=== PATIENT | male | born 1960 | race Caucasian/White ===

== ENCOUNTER → 2018-02-13 | Outpatient (CLI) | payer BC ==
[2018-02-13 08:11] LABS: BASOPHILS % (AUTO) 0 % (0-10); EOSINOPHILS # (AUTO) 0.2 10^3/uL (0.0-0.3); EOSINOPHILS % (AUTO) 3 % (0-10); HEMATOCRIT 43 % (40-54); HEMOGLOBIN 15.5 G/DL (13.3-17.7); LYMPHOCYTES # (AUTO) 0.6 X 10^3 (1.0-4.0); LYMPHOCYTES % (AUTO) 11 % (12-44); MEAN CORPUSCULAR HEMOGLOBIN 31 PG (25-34); MEAN CORPUSCULAR HGB CONC 36 G/DL (32-36); MEAN CORPUSCULAR VOLUME 87 FL (80-99); MEAN PLATELET VOLUME 9.8 FL (7.4-10.4); MONOCYTES # (AUTO) 0.4 X 10^3 (0.0-1.0); MONOCYTES % (AUTO) 7 % (0-12); NEUTROPHILS # (AUTO) 4.4 X 10^3 (1.8-7.8); NEUTROPHILS % (AUTO) 78 % (42-75); PLATELET COUNT 279 10^3/uL (130-400); RED BLOOD COUNT 4.97 10^6/uL (4.35-5.85); RED CELL DISTRIBUTION WIDTH 13.2 % (10.0-14.5); WHITE BLOOD COUNT 5.6 10^3/uL (4.3-11.0)
[2018-02-13 08:30] LABS: ALANINE AMINOTRANSFERASE 31 U/L (0-55); ALBUMIN 4.4 GM/DL (3.2-4.5); ALKALINE PHOSPHATASE 63 U/L (40-136); BILIRUBIN,TOTAL 0.9 MG/DL (0.1-1.0); BUN/CREATININE RATIO 12; CALCIUM 9.2 MG/DL (8.5-10.1); CARBON DIOXIDE 27 MMOL/L (21-32); CHLORIDE 104 MMOL/L (98-107); CHOLESTEROL 190 MG/DL (< 200); CREATININE SERUM 1.02 MG/DL (0.60-1.30); GFR ESTIMATED > 60; GLUCOSE 93 MG/DL (70-105); HDL CHOLESTEROL 52 MG/DL (40-60); POTASSIUM 4.2 MMOL/L (3.6-5.0); SODIUM 139 MMOL/L (135-145); TRIGLYCERIDES 77 MG/DL (<150); VLDL CHOLESTEROL 15 MG/DL (5-40)
== END ==
LOC: CARD 07:44
PROVIDERS: ATTEND Nurse Practitioner Family
DX: R07.9 Chest pain, unspecified (principal); R03.0 Elevated blood-pressure reading, without diagnosis of hypertension; L98.9 Disorder of the skin and subcutaneous tissue, unspecified; Z85.46 Personal history of malignant neoplasm of prostate
CPT/HCPCS: 36415; 80053; 80061; 84153; 84443; 85025; 93005

== ENCOUNTER 2018-02-24 08:00 | Day surgery (SDC) | payer BC ==
[~2018-02-24] VITALS: Ht 182.9 cm; Wt 86.2 kg
[2018-02-24] MEDS ORDERED: NS IV 500 ML 500 ML ONE (08:07)
[2018-02-24] MEDS ORDERED: NS IV 500 ML 500 ML IV PRN (08:09)
[2018-02-24 08:19] VITALS: BP 142/98
[2018-02-24] MEDS ORDERED: MIDAZOLAM 2 MG/2 ML (VERSED) VIAL ONE ×3 (08:49)
[2018-02-24] MEDS ORDERED: fentaNYL INJECTION 100 MCG/2 ML AMP ONE ×2 (08:49→09:22)
[2018-02-24] MEDS: fentaNYL INJECTION 100 MCG/2 ML AMP IVP PRN ×4 (09:05→09:30)
[2018-02-24] MEDS: MIDAZOLAM 2 MG/2 ML (VERSED) VIAL IVP PRN ×3 (09:10→09:27)
--- NOTE | 2018-02-24 09:14 | Conscious Sedation/ASA ---
Conscious Sedation Pre-Proced Time Reviewed: 09:14 ASA Class: 2 Airway Mallampati Classification: (nome appropriate class) I. II. III, IV Lungs Heart ASA score ASA 1: a normal healthy patient ASA 2: a patient with a mild systemic disease (mid diabetes, controlled hypertension, obesity ASA 3: a patient with a severe systemic disease that limits activity (angina , COPD, prior Myocardial infarction) ASA 4: a patient with an incapacitating disease that is a constant threat to life (CHF, renal failure) ASA 5: a moribund patient not expected to survive 24 hrs. (ruptured aneurysm) ASA 6: a declared brain patient whose organs are being harvested. For emergent operations, add the letter E after the classification Grade 1 Sedation Plan: Discussed options with patient/fam Note The patient is an appropriate candidate to undergo the planned procedure, sedation, and anesthesia. The patient immediately re-assessed prior to indication. EDUARDO MALONEY MD February 24, 2018 9:14 am
--- NOTE | 2018-02-24 09:14 | History & Physicial ---
History of Present Illness History of Present Illness Reason for visit/HPI to undergo surveillance colonoscopy. He has a personal history of polyps, based on colonoscopy from 5 years ago. Date of Admission 02/24/18 Date Seen by Provider: February 24, 2018 Time Seen by Provider: 09:12 I consulted on this patient on 02/24/18 09:12 Attending Physician Eduardo Maloney MD Admitting Physician No,Local Physician Consult Allergies and Home Medications Allergies Coded Allergies: No Known Drug Allergies (Unverified , 02/19/18) Home Medications No Active Prescriptions or Reported Meds Patient Home Medication List Home Medication List Reviewed: Yes Past Kcvkrut-Omiabn-Jlxcff Hx Patient Social History Marrital Status: Employed/Student: self-employed Alcohol Use: Occasionally Uses Recreational Drug Use: No Smoking Status: Never a Smoker Recent Foreign Travel: No Contact w/other who traveled: No Recent Hopitalizations: No Recent Infectious Disease Expo: No Seasonal Allergies Seasonal Allergies: Yes Respiratory No Cardiovascular No Neurological No Reproductive System Hx Reproductive Disorders: No Gastrointestinal Yes Polyps Musculoskeletal No Cancer No Constitutional: no symptoms reported EENTM: no symptoms reported Respiratory: no symptoms reported Cardiovascular: no symptoms reported Genitourinary: no symptoms reported Musculoskeletal: no symptoms reported Skin: no symptoms reported Psychiatric/Neurological: No Symptoms Reported Physical Exam Vital Signs Vital Signs - First Documented 02/24/18 08:19 Temp 98.6 Pulse 64 Resp 16 B/P (MAP) 142/98 (113) Pulse Ox 97 O2 Delivery Room Air Capillary Refill : General Appearance: No Apparent Distress Neck: Normal Inspection Respiratory: Lungs Clear Cardiovascular: Regular Rate, Rhythm Gastrointestinal: Non Tender, Soft Rectal: Deferred Neurologic/Psychiatric: Alert, Oriented x3 Skin: Warm/Dry Assessment/Plan Assessment and Plan gentleman with a previous history of polyps. For surveillance colonoscopy Admission Diagnosis Admission Status: Other (Outpt Proc) EDUARDO MALONEY MD February 24, 2018 9:14 am
--- NOTE | 2018-02-24 09:49 | Discharge Inst-Simple/Standard ---
Discharge Inst-Standard Discharge Medications New, Converted or Re-Newed RX: Other Patient Instructions/Follow Up Plan of Care/Instructions/FU: Repeat colonoscopy in 5 years Activity as Tolerated: Yes Discharge Diet: No Restrictions EDUARDO MALONEY MD February 24, 2018 9:49 am
--- NOTE | 2018-02-24 09:49 | Endo Procedure Record ---
Endo Procedure Report Date of Procedure Last Colonoscopy: Yes (2012) February 24, 2018 Surgeon (s) EDUARDO MALONEY MD Post Procedure/Op Diagnosis External hemorrhoid Sigmoid diverticulosis Procedure Performed Colonoscopy to cecum Description of Procedure Anesthesia Type: Conscious Sedation Specimen(s) collected/removed none Description of the Procedure Indication for the procedure: This gentleman came in for surveillance colonoscopy. He reported a personal history of polyps in the past. informed consent was obtained after reviewing the procedure in detail. Description of the procedure: He was placed in left lateral rectus position and his vital signs were monitored. Conscious sedation was achieved using Versed and fentanyl. Examination of the perianal area revealed an external hemorrhoid at about 7 o' clock position. Digital examination was unremarkable. The colonoscope was then introduced in the rectum and advanced all the way up to the cecum. The quality of bowel preparation was rather sub-optimal. I was able to section the liquid fecal material and complete the examination. The scope was then withdrawn slowly and the mucosa examined in a systematic fashion. Findings: Sigmoid diverticulosis. No recurrent polyps were found. He tolerated the procedure well and was taken back to the nursing area in a stable condition. Impression: Polyp surveillance. No recurrence. Recommend repeating in 5 years. EDUARDO MALONEY MD February 24, 2018 9:49 am
[2018-02-24 09:55] VITALS: BP 113/69
[2018-02-24 10:15] VITALS: BP 117/83
[2018-02-24 11:55] VITALS: BP 117/83
== END 2018-02-24 10:50 | disposition home or self-care (01) ==
LOC: ENDO 08:00
PROVIDERS: ATTEND Surgery
DX: K57.30 Diverticulosis of large intestine without perforation or abscess without bleeding (principal); K64.4 Residual hemorrhoidal skin tags; Z86.010 Personal history of colon polyps

== ENCOUNTER → 2018-03-05 | Outpatient (CLI) | payer BC ==
[~2018-03-05] MED LIST: CATHETER FLUSH 10 ML SYR IV PRN
[2018-03-05 10:14] VITALS: BP 164/97
[2018-03-05 10:24] VITALS: BP 232/99
--- NOTE | 2018-03-05 22:31 | STRESS TEST ---
DATE OF SERVICE: 03/05/2018 AN EXERCISE MYOVIEW STRESS TEST REPORT Baseline heart rate is 62. Baseline blood pressure is 161/92. Baseline EKG is sinus rhythm with no ischemic changes. In summary, the patient was injected with 10.79 mCi of technetium-99 Myoview and the resting images were obtained. Then, the patient started exercising with the baseline heart rate, blood pressure and EKG mentioned above. At peak stress level, the patient was given 29.3 mCi of technetium-99 Myoview. The patient was able to exercise for a total of 7 minutes 30 seconds on standard Carlo protocol. With peak exercise level, EKG was showing minimal nondiagnostic changes. Blood pressure was 211/105. During recovery, heart rate and blood pressure returned to baseline. EKG returned to baseline. The resting and stress images were reviewed and compared. It appeared that he has diaphragmatic attenuation with typical male pattern with no significant ischemia or infarction. SSS is 1, SDS 1, TID value 1.01. On the gated images, the left ventricle appeared to be in normal size with normal contractility and calculated ejection fraction of 64%. CONCLUSION: 1. Fair exercise tolerance, a total of 7 minutes 30 seconds on Carlo protocol, total of 9.1 METS achieving 90% of maximum expected heart rate. 2. Severe hypertensive response to exercise returned to baseline during recovery. 3. Minimal nondiagnostic EKG changes with exercise returned to baseline during recovery. 4. Typical male pattern with no ischemia or infarction on SPECT images. 5. Normal left ventricular size with normal contractility. Calculated ejection fraction of 64%. Job ID: [id number] DocumentID: [id number] Dictated Date: 03/05/2018 16:11:51 Varnisher Date: 03/05/2018 22:30:26 Dictated By: DILEEP CHAHAL MD
== END ==
LOC: CARD 08:34
PROVIDERS: ATTEND Internal Medicine Cardiovascular Disease
DX: R07.89 Other chest pain (principal); I10 Essential (primary) hypertension; Z82.49 Family history of ischemic heart disease and other diseases of the circulatory system
CPT/HCPCS: 78452; 93017

== ENCOUNTER → 2018-04-21 | Outpatient (CLI) | payer BC | LOC: CARD 12:28 | PROVIDERS: ATTEND Internal Medicine Cardiovascular Disease | DX: R07.89 Other chest pain (principal); I10 Essential (primary) hypertension; I07.1 Rheumatic tricuspid insufficiency; Z82.49 Family history of ischemic heart disease and other diseases of the circulatory system | CPT/HCPCS: 93306 ==

== ENCOUNTER → 2023-02-12 | Outpatient (CLI) | payer BC ==
[~2023-02-12] MED LIST changes: +ATOR10TA66 PO; -CATHETER FLUSH 10 ML SYR IV PRN; +LOSA100T57 PO; +MTP100TCR PO; +SILO8CAP6 PO
--- NOTE | 2023-02-12 16:33 | Diagnostic Imaging Report ---
INDICATION: Right shoulder pain. AP, oblique, and transscapular views of the right shoulder are obtained. FINDINGS: No fracture or acute bony abnormality is seen. Glenohumeral joint and AC joint appear unremarkable. IMPRESSION: Negative right shoulder. Dictated by: Dictated on workstation # [id number]
--- NOTE | 2023-02-12 16:34 | Diagnostic Imaging Report ---
INDICATION: Pain COMPARISON: None available. TECHNIQUE: 4 radiographs of cervical spine dated 02/12/2023. FINDINGS: Chronic appearing mid and distal left clavicular shaft fracture. Straightening of the normal cervical lordosis without significant anterolisthesis. Besides mild scattered endplate degenerative changes, vertebral body heights are otherwise well maintained. Moderate disc space height loss at C3/C4 with mild disc space height loss throughout the remainder of the cervical spine. Small multilevel anterior osteophytes. No acute fracture or dislocation. No destructive osseous process. The lateral masses are well seated. The dens is grossly unremarkable, though not optimally visualized secondary to overlying teeth. Prevertebral soft tissues are unremarkable. IMPRESSION: Straightening of the normal cervical lordosis, which may be positional, though can also relate to muscle spasm. Mild to moderate multilevel degenerative changes without acute fracture. Dictated by: Dictated on workstation # [id number]
== END ==
LOC: RAD 11:36
PROVIDERS: ATTEND Nurse Practitioner Family
DX: M47.812 Spondylosis without myelopathy or radiculopathy, cervical region (principal)
CPT/HCPCS: 72040; 73030

== ENCOUNTER 2023-02-13 05:39 | Outpatient (CLI) | payer BC ==
[~2023-02-13] VITALS: Ht 182.9 cm; Wt 91.7 kg
[2023-02-14] MEDS ORDERED: LOSA100T57 PO (10:19)
[2023-02-14] MEDS ORDERED: ATOR10TA66 PO (10:19)
[2023-02-14] MEDS ORDERED: MTP100TCR PO (10:19)
[2023-02-14] MEDS ORDERED: SILO8CAP6 PO (10:19)
== END 2023-02-14 10:22 ==
LOC: PREOP 05:39
PROVIDERS: ATTEND Surgery
DX: Z01.818 Encounter for other preprocedural examination (principal); Z86.010 Personal history of colon polyps

== ENCOUNTER → 2023-02-13 | Outpatient (CLI) | payer BC ==
[~2023-02-13] MED LIST changes: +CATHETER FLUSH 10 ML SYR IVP PRN
[2023-02-13 13:07] VITALS: BP 151/109
--- NOTE | 2023-02-13 15:09 | Cardiology Stress Test Report ---
Stress Test Report Date of Procedure/Referring: Date of Procedure: Feb 13, 2023 PCP No,Local Physician Admitting Physician Admitting Physician: Attending Physician: Jorge Luis Parmar MD Indications: HTN Baseline Heart Rate: 63 Baseline Blood Pressure: Blood Pressure Systolic: 151 Blood Pressure Diastolic: 109 Vital Signs Date Time Temp Pulse Resp B/P (MAP) Pulse Ox O2 Delivery O2 Flow Rate FiO2 02/13/23 13:07 65 151/109 (123) Baseline Vital Signs Vital Signs Date Time Temp Pulse Resp B/P (MAP) Pulse Ox O2 Delivery O2 Flow Rate FiO2 02/13/23 13:07 65 151/109 (123) Baseline EKG: Baseline EKG: NSR Summary: After explaining the procedure and details to the patient, he signed the consent and was brought to the stress nuclear laboratory. Patient exercised on standard Carlo protocol, EKG, heart rate and blood pressure were monitored continuously, resting and stress doses of radio tracer were injected, imaging was acquired and reviewed in the short axis, horizontal long axis and vertical long axis views Patient was able to exercise for a total of 6.30 minutes on Carlo protocol, METs 7.5 Maximum heart rate 146 Maximum blood pressure 199/86 Stress EKG, Minimal nondiagnostic changes Recovery EKG, Return to baseline TID: 0.91 SSS: 2 SDS: 2 EF: 60 Conclusion: Good exercise tolerance for a total of 6 minutes and 30 seconds on standard Carlo protocol, 7.9 METS achieving 92% of maximum expected heart rate Appropriate heart rate response to exercise with hypertensive response to exercise return to baseline during recovery Nondiagnostic EKG changes with exercise return to baseline during recovery Diaphragmatic attenuation with typical male pattern, no significant ischemia or infarction noted on SPECT images Normal left ventricular size, ejection fraction 60% Copy Copies To 1: MICHEAL LOERA MD, BASHAR J MD Feb 13, 2023 15:09
== END ==
LOC: CARD 11:00
PROVIDERS: ATTEND Internal Medicine Cardiovascular Disease
DX: I10 Essential (primary) hypertension (principal)
CPT/HCPCS: 78452; 93017; A9502

== ENCOUNTER 2023-02-26 07:29 | Day surgery (SDC) | payer BC ==
[2023-02-26] VITALS (7 sets, daily range): BP systolic 112–136; BP diastolic 66–88
[~2023-02-26] VITALS: Ht 182.9 cm; Wt 91.7 kg
[~2023-02-26 07:29] MED LIST changes: -CATHETER FLUSH 10 ML SYR IVP PRN
[2023-02-26] MEDS ORDERED: LACTATED RINGERS 1,000 ML IV STA (07:37)
[2023-02-26] MEDS ORDERED: PROPOFOL INJECTION 50 ML IV ONE (09:05)
[2023-02-26] MEDS ORDERED: MIDAZOLAM 2 MG/2 ML (VERSED) VIAL ONE (09:06)
--- NOTE | 2023-02-26 09:27 | Discharge Inst-Simple/Standard ---
Discharge Inst-Standard Patient Instructions/Follow Up Plan of Care/Instructions/FU: Jan five years, any issues before that be seen at that time Activity as Tolerated: Yes Discharge Diet: Regular Diet (high fiber) JENNY SHANE DO February 26, 2023 09:27
--- NOTE | 2023-02-26 09:30 | Progress Note-Post Operative ---
Post-Operative Progess Note Surgeon (s)/Client Support Representative (s) Surgeon JENNY SHANE DO Client Support Representative: NA Pre-Operative Diagnosis Hx of polyps Post-Operative Diagnosis Diverticulosis Procedure & Operative Findings Date of Procedure 02/26/23 Procedure Performed/Findings Colonoscopy Anesthesia Type Per STIPPLER Estimated Blood Loss Estimated blood loss (mL): None Specimens/Packing Specimens Removed none JENNY SHANE DO February 26, 2023 09:30
--- NOTE | 2023-02-26 14:20 | OPERATIVE REPORT ---
DATE OF SERVICE: 02/26/2023 PREOPERATIVE DIAGNOSIS: History of polyps. POSTOPERATIVE DIAGNOSIS: Diverticulosis. PROCEDURE: Colonoscopy. SURGEON: Jenny Montoya DO ANESTHESIA: Per HEAD CONTROL CLERK. ESTIMATED BLOOD LOSS: None. COMPLICATIONS: None. SPECIMENS: None. INDICATIONS: The patient is a 62-year-old male with a history of polyps and screening colonoscopy. He understands risks and benefits of procedure and wished to proceed. Consent was signed in chart. DESCRIPTION OF PROCEDURE: The patient was taken to endoscopy suite, placed in left lateral recumbent position. Timeout was performed. Digital rectal exam was performed. No palpable polyps, masses or ulcerations. Scope was inserted in the rectum, advanced all the way to the cecum with minimal difficulty. Prep was adequate with irrigation and suction. Scope was then slowly retracted back. No polyps, masses or ulcerations in the cecum, ascending, transverse, descending and sigmoid colon had some diverticulosis present. Once in the rectum, scope was retroflexed noting no other pathology. Scope was returned to its normal position, slowly withdrawn until completely removed. The patient tolerated the procedure well without complications, taken to recovery room in stable condition. RECOMMENDATIONS: The patient will need repeat colonoscopy in 5 years. Any issues before that, be seen at that time and would consider repeating. High fiber diet due to diverticulosis. Job ID: [id number] DocumentID: [id number] Dictated Date: 02/26/2023 09:29:57 Development Planner Date: 02/26/2023 14:18:00 Dictated By: JENNY MONTOYA DO MTDD
--- NOTE | 2023-02-26 14:22 | Anesthesia-General Post-Op ---
MAC Patient Condition Mental Status/LOC: Same as Preop Cardiovascular: Satisfactory Nausea/Vomiting: Absent Respiratory: Satisfactory Pain: Controlled Complications: Absent Post Op Complications Complications None Follow Up Care/Instructions Patient Instructions None needed. Anesthesiology Discharge Order Discharge Order Patient is doing well, no complaints, stable vital signs, no apparent adverse anesthesia problems. No complications reported per nursing. CHICHO GOLDMAN CRNA February 26, 2023 14:21
== END 2023-02-26 10:40 | disposition home or self-care (01) ==
LOC: ENDO 07:29
PROVIDERS: ATTEND Surgery
DX: Z12.11 Encounter for screening for malignant neoplasm of colon (principal); K57.30 Diverticulosis of large intestine without perforation or abscess without bleeding

== ENCOUNTER → 2023-03-07 | Outpatient (CLI) | payer BC ==
--- NOTE | 2023-03-07 13:33 | Diagnostic Imaging Report ---
PROCEDURE: MR imaging cervical spine without contrast. TECHNIQUE: Multiplanar, multisequence MR imaging of the cervical spine was performed without contrast. INDICATION: Neck pain. COMPARISON: Radiographs from 02/12/2023 FINDINGS: There is motion artifact on multiple sequences. Alignment of the cervical spine appears normal with no spondylolisthesis. There is a hemangioma at C7. Vertebral body heights are preserved and no acute fracture seen. There is mild multilevel disc height loss. The spinal cord demonstrates no focal lesions. Soft tissues about the cervical spine demonstrate no acute abnormality. C2-C3: No significant disc bulge. No spinal canal or foraminal stenosis. C3-C4: Posterior disc osteophyte complex. Mild spinal canal narrowing. Mild bilateral foraminal narrowing. C4-C5: Posterior disc osteophyte complex. Moderate spinal canal stenosis. Moderate bilateral foraminal stenosis. C5-C6: Posterior disc osteophyte complex, asymmetric to the left. Moderate to severe spinal canal stenosis with flattening of the left anterior cord. No cord signal changes are seen. Severe left foraminal stenosis. Mild right foraminal narrowing. C6-C7: Posterior disc osteophyte complex with moderate spinal canal stenosis and mild flattening of the cord but no cord signal changes. Severe bilateral foraminal stenosis. C7-T1: No significant disc bulge. No spinal canal or foraminal stenosis. IMPRESSION: 1. Degenerative changes in the cervical spine with multilevel spinal canal stenosis, most pronounced at C5-C6. 2. Multilevel foraminal stenosis, most pronounced in C6-C7 bilaterally and C5-C6 on the left. Dictated by: Dictated on workstation # [id number]
== END ==
LOC: RAD 08:53
PROVIDERS: ATTEND Nurse Practitioner Family
DX: M47.812 Spondylosis without myelopathy or radiculopathy, cervical region (principal); M48.02 Spinal stenosis, cervical region
CPT/HCPCS: 72141